=== PATIENT | female | born 1955 | race Asian ===

== ENCOUNTER 2017-01-29 14:30 | Outpatient (CLI) | payer BC ==
[~2017-01-29] VITALS: Ht 160 cm; Wt 61.8 kg
[~2017-01-29 14:30] MED LIST: ALLEGRA 60MG TA60 MG PO; ALLERGY SHOT INJ; CELEBREX 200MG200 MG PO; DULERA1 ARO IH; NO HOME MEDICATIONS; NORCO 325 MG-51 TAB PO; SINGULAIR 110 MG/TAB PO; ZOFRAN ODT4 MG PO
[2017-01-29] MEDS ORDERED: ASMANEX HF100 MCG/Ac IH (14:43)
[2017-01-29] MEDS ORDERED: CALCIUM 600-D 61 TAB PO (14:44)
[2017-01-29 15:00] VITALS: BP 104/54; PULSE 88; TEMP 98.6
== END 2017-01-29 15:31 | disposition home or self-care (01) ==
LOC: EUO 14:30
DX: M81.0 Age-related osteoporosis without current pathological fracture (principal); Z79.899 Other long term (current) drug therapy
CPT/HCPCS: J3489

== ENCOUNTER → 2017-03-21 | Outpatient (CLI) | payer BC ==
[~2017-03-21] MED LIST changes: +ASMANEX HF100 MCG/Ac IH; +CALCIUM 600-D 61 TAB PO
== END ==
LOC: MC.RAD 08:20
DX: Z12.31 Encounter for screening mammogram for malignant neoplasm of breast (principal)

== ENCOUNTER 2018-03-20 14:41 | Outpatient (CLI) | payer BC ==
[~2018-03-20] VITALS: Ht 160 cm; Wt 62.0 kg
[2018-03-20 15:15] VITALS: BP 118/76; PULSE 75; TEMP 98.3
== END 2018-03-20 16:15 | disposition home or self-care (01) ==
LOC: EUO 14:41
DX: M81.0 Age-related osteoporosis without current pathological fracture (principal); Z79.899 Other long term (current) drug therapy
CPT/HCPCS: J3489

== ENCOUNTER → 2020-03-22 | Outpatient (CLI) | payer BC | LOC: MC.RAD 07:28 | DX: Z12.31 Encounter for screening mammogram for malignant neoplasm of breast (principal) ==

== ENCOUNTER 2022-07-06 15:49 | Outpatient (CLI) | payer BC ==
[~2022-07-06] VITALS: Ht 160 cm; Wt 61.2 kg
[2022-07-06 16:34] VITALS: BP 119/80; PULSE 81; TEMP 97.5
== END 2022-07-06 16:35 | disposition home or self-care (01) ==
LOC: EUO 15:49
DX: M81.0 Age-related osteoporosis without current pathological fracture (principal)
CPT/HCPCS: J0897